=== PATIENT | female | born 1960 | race Hispanic/Latino ===

== ENCOUNTER 2017-09-29 20:36 | Emergency (ER) | payer SELFPAY ==
[~2017-09-29] VITALS: Ht 154.9 cm; Wt 48.4 kg
[~2017-09-29 20:36] MED LIST: BENADRYL50 MG PO; BENTYL10 MG PO; NAPROSYN500 MG PO; NORCO 5/3251 TABLET PO; PREDNISONE10 M1 PO; VESICARE10 MG PO; ZOFRAN ODT8 MG PO
[2017-09-29 21:43] LABS: HEMATOCRIT 37.2 % (36.0-46.0); HEMOGLOBIN 12.1 G/DL (11.9-15.5); MCH 29.1 PG (29.0-34.0); MCHC 32.5 G/DL (30.0-36.0); MCV 89.4 FL (83-99); PLATELET COUNT 315 K/uL (156-360); RBC DIS.WIDTH-CV 11.9 % (11.8-14.6); RBC DIS.WIDTH-SD 38.5 % (39-53); RED BLOOD COUNT 4.16 M/uL (3.80-5.20); WHITE BLOOD COUNT 5.8 K/uL (4.1-10.2)
[2017-09-29 21:53] LABS: CHLORIDE 104 MEQ/L (99-109); POTASSIUM 3.8 MEQ/L (3.7-5.4); SODIUM 138 MEQ/L (136-147)
[2017-09-29 21:58] LABS: CREATININE 0.5 MG/DL (0.6-1.3); GFR ESTIMATE (CALCULATED) > 59 mL/min/; GLUCOSE 102 mg/dL (70-99); UREA NITROGEN (BUN) 12 mg/dL (9-23)
[2017-09-29 22:03] LABS: TROP-I INTERPRETATION NEGATIVE; TROPONIN-I < 0.01 ng/mL (0.0-0.30)
[2017-09-29] MEDS ORDERED: MOTRIN600 MG PO (22:30)
[2017-09-29 22:49] VITALS: BP 136/79
== END 2017-09-29 22:50 | disposition home or self-care (01) ==
LOC: EME 20:36 → EXP 20:36
PROVIDERS: Physician Assistant
DX: R07.89 Other chest pain (principal); M54.9 Dorsalgia, unspecified; M25.519 Pain in unspecified shoulder; M79.602 Pain in left arm; Z82.41 Family history of sudden cardiac death
CPT/HCPCS: 71046; 80048; 84484; 85027; 93005; 99281; 99284